=== PATIENT | female | born 1965 | race Caucasian/White ===

== ENCOUNTER 2016-06-24 10:34 | Outpatient (CLI) | payer OTHER | END 2016-06-24 10:35 | disposition home or self-care (01) | DX: M51.36 Other intervertebral disc degeneration, lumbar region (principal); M47.816 Spondylosis without myelopathy or radiculopathy, lumbar region; M43.16 Spondylolisthesis, lumbar region; M51.37 Other intervertebral disc degeneration, lumbosacral region ==

== ENCOUNTER 2019-12-03 08:18 | Outpatient (CLI) | payer OTHER ==
--- NOTE | 2019-12-03 09:41 | MRI Report ---
PROCEDURE: Lumbar Spine W/O INDICATIONS: LOW BACK PAIN/RADICULOPATHY,LUMBAR REGION TECHNIQUE: Noncontrast sagittal T1 spin echo and T2 fast echo, sagittal STIR, axial T1 and T2 fast spin echo thr ough the lumbar spine. In cases with scoliosis, additional coronal T2 fast spin echo may be performe d. COMPARISON: None. FINDINGS: Image quality: Excellent. Alignment and Curvature: No plain films are available for comparison. Thus, for numbering purposes, 5 lumbar type vertebral bodies will be presumed for the current report. This should be confirmed with plain film correlation prior to any lumbar spinal intervention. There is loss of normal lumbar lordo sis. There is mild grade 1 retrolisthesis of L2 on L3, L3 on L4, and L5 on S1. Bone Marrow: Marrow is of normal overall signal. No acute vertebral body compression fractures. Mo derate reactive signal within the endplates adjacent to the L5-S1 intervertebral discs. Mild reactive signal within the end plates adjacent to the L2-L3, L3-L4, and L4-L5 intervertebral discs. L4-L5 fus ion has been performed with paired posterior rods and pedicle screws. Spinal Cord: Conus medullaris terminates at the T12-L1 disc space level. Visualized cord demonstrat es normal signal and size. Paraspinous Soft Tissues: No paravertebral masses. T12-L1: Normal in appearance. L1-L2: Mild disc height loss and desiccation. Mild diffuse disc bulge. Mild facet and ligament fla vum hypertrophy. Mild epidural lipomatosis. Mild canal stenosis. No foraminal stenosis. L2-L3: Moderate disc height loss and desiccation. Mild diffuse disc bulge. Mild facet and ligament flavum hypertrophy. Mild epidural lipomatosis. Moderate canal stenosis. Mild bilateral foraminal mary ann nosis. L3-L4: Moderate disc desiccation. Mild disc height loss. Mild diffuse disc bulge. Mild bilateral fa cet hypertrophy. Mild canal stenosis. Moderate right greater than left subarticular foraminal stenosi s. L4-L5: Interbody device and fusion. No significant canal stenosis. Mild bilateral foraminal stenosis. L5-S1: Moderate disc height loss and desiccation. Moderate diffuse disc bulge with superimposed lef t paracentral disc extrusion. Mild bilateral facet hypertrophy. Moderate canal stenosis. Severe left and moderate right foraminal stenosis. Left L5 nerve root compression. Posterior deviation and compre ssion of the left S1 nerve root. IMPRESSION: 1. Multilevel degenerative disc and facet disease, in addition to epidural lipomatosis and ligamentum flavum hypertrophy. 2. Postsurgical sequelae at L4-L5. 3. Multilevel canal stenoses, worst at L2-L3 and L5-S1 where there is moderate canal stenosis. 4. Posterior deviation and compression of the left S1 nerve root at the L5-S1 disc space level. 5. Multilevel foraminal stenoses, worst on the left at L5-S1 where there is associated intraforaminal nerve root compression. Recommend correlation with clinical symptoms to ascertain relevance of this finding. 6. Five lumbar type vertebral bodies were presumed for the purposes of the current report. Correlati on with plainfilms for numbering purposes is recommended prior to any lumbar spinal intervention. Reviewed by: Pablo Osman MD on 12/03/2019 9:40 AM PDT Approved by: Pablo Osman MD on 12/03/2019 9:40 AM PDT Station ID: [id number]
== END 2019-12-03 08:19 | disposition home or self-care (01) ==
LOC: DI 08:18
PROVIDERS: ATTEND Family Medicine
DX: M43.16 Spondylolisthesis, lumbar region (principal); M43.17 Spondylolisthesis, lumbosacral region; M51.36 Other intervertebral disc degeneration, lumbar region; M51.27 Other intervertebral disc displacement, lumbosacral region; M47.816 Spondylosis without myelopathy or radiculopathy, lumbar region; M47.817 Spondylosis without myelopathy or radiculopathy, lumbosacral region; M48.061 Spinal stenosis, lumbar region without neurogenic claudication; M48.07 Spinal stenosis, lumbosacral region; Z98.1 Arthrodesis status
CPT/HCPCS: 72148